=== PATIENT | male | born 1980 | race Hispanic/Latino ===

== ENCOUNTER 2018-07-16 07:30 | Emergency (ER) | payer BC, OTHER ==
[~2018-07-16] VITALS: Ht 165.1 cm; Wt 80.7 kg
[2018-07-16] MEDS ORDERED: KETOROLAC TROMETHAMINE 30 MG/ML VIAL IV STA (08:02)
--- NOTE | 2018-07-16 08:20 | Diagnostic Imaging Report ---
PROCEDURE:CXR 2 VIEW - HOPD COMPARISON:None. INDICATIONS:lt wall chest pain today FINDINGS:The lungs are well-inflated. No focal airspace consolidation, pleural effusion, or pneumothorax. Cardio mediastinal contour and pulmonary vasculature are within normal limits when accounting for portable, AP technique. No acute osseous abnormality. CONCLUSION: No acute cardiopulmonary abnormality. Dictated by: Inder Cardona M.D. on 07/16/2018 at 8:28 Electronically approved by: Inder Cardona M.D. on 07/16/2018 at 8:28
[2018-07-16] MEDS ORDERED: MORPHINE SULFATE 2 MG/ML SYR IV STA (08:34)
[2018-07-16] MEDS ORDERED: SODIUM CHLORIDE 0.9% 1000ML 1,000 ML IV SCH (08:45)
[2018-07-16] MEDS ORDERED: PROMETHAZINE 25MG/ NS 50ML (IV) IV ONE (08:45)
[2018-07-16 09:12] VITALS: BP 144/72
== END 2018-07-16 09:19 | disposition home or self-care (01) ==
LOC: FSED 07:30
DX: R07.89 Other chest pain (principal); M94.0 Chondrocostal junction syndrome [Tietze]
CPT/HCPCS: 71046; 80053; 82553; 84484; 85025; 85379; 93005; 99284; J1885; J2270; J2550

== ENCOUNTER 2020-03-14 18:59 | Emergency (ER) | payer BC, OTHER ==
[~2020-03-14] VITALS: Ht 165.1 cm; Wt 78.9 kg
--- OUTSIDE RECORDS SUMMARY | 2020-03-14 19:01 | XMS REPORT | Continuity of Care Document ---
Author Author [facility] Organization [facility] Address [address] Mai [address] [place] [id number] Phone Unavailable Care Team Providers Care Trash Truck Driver Name Role Phone SOFIA NEVES MD PCP Erma WINTERS Unavailable Payers Payer Name Policy Type Policy Number Effective Date Expiration Date Dev lisa [employer] [id number] 2017 00:00:00 [facility] Problems This patient has no known problems. Allergies, Adverse Reactions, Alerts This patient has no known allergies or adverse reactions. Medications This patient has no known medications. Procedures This patient has no known procedures. Encounters Start Date/Time End Date/Time Encounter Type Admission Type [facility] Care Department Encounter ID Source 2018-07-16 07:30:00 2018-07-16 09:19:00 Departed Emergency Room 1 KVE WINTERS [facility] [id number] [facility] Results Test Description Test Time Test Comments Results Result Comments Source CXR 2 VIEW - HOPD 2018-07-16 08:28:00 [facility] [address] [place] [address] Patient Name: DONNA CHAUDHRY MR #: [id number] : 1980 Age/Sex: 37/M Req #: [id number] Adm Physician: Ordered by: KEV WINTERS MD Report #: [id number] Location: [facility] Room/Bed: Procedure: [id number] HOPD/CXR 2 VIEW - HOPD Exam Date: 07/16/18 Exam Time: 815 REPORT STATUS: Signed PROCEDURE: CXR 2 VIEW - HOPD COMPARISON: None. INDICATIONS: lt wall chest pain today FINDINGS: The lungs are well- inflated. No focal airspace consolidation, pleural effusion, or pneumothorax. Cardio mediastinal contour and pulmonary vasculature are within normal limits when accounting for portable, AP technique. No acute osseous abnormality. CONCLUSION: No acute cardiopulmonary abnormality. Dictated by: Timoteo Navarro M.D. on 07/16/2018 at 8:28 Electronically approved by: Timoteo Navarro M.D. on 07/16/2018 at 8:28 Dictated By: TIMOTEO NAVARRO MD 7 Transcribed By: ESEQUIEL on 07/16/18827 COPY TO: KEV WINTERS MD
[2020-03-14] MEDS ORDERED: KETOROLAC TROMETHAMINE 60 MG/2 ML VIAL IM ONE (19:15)
[2020-03-14] MEDS ORDERED: METFORMIN HCL500 MG PO (19:17)
--- NOTE | 2020-03-14 19:18 | NUR ---
Report to BARBARA Pizarro
--- NOTE | 2020-03-14 19:49 | Diagnostic Imaging Report ---
Right wrist 3 - views HISTORY: Pain and swelling. COMPARISON: None FINDINGS: No displaced fracture. Osseous alignment is within normal limits. The joint spaces are well-maintained. The soft tissues appear unremarkable. IMPRESSION: No acute osseous abnormality. Signed by: Dr. Claritza Vyas M.D. on 03/14/2020 7:45 PM
--- NOTE | 2020-03-14 19:56 | Emergency Department Note ---
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 was doing well prior to this. Historian: Patient Arrival Mode: Car History limited by: condition of the patient (normal) Onset (how long ago): day(s) (3) Location: rgt wrist Quality: sharp Radiation: non-radiation Severity: moderate Onset quality: gradual Duration (how long): day(s) (3) Progression: worsening Chronicity: new Context: recent illness, recent surgery, recent immobilization, recent travel; trauma/injury; new medications, hx of DVT/PE, non-compliance w/ medications Relieving factors: rest Exacerbating factors: movement Associated symptoms: denies other symptoms Treatments prior to arrival: none Past Medical/Family History Physician Review I have reviewed the patient's past medical and family history. Any updates have been documented here. Past Medical History Recent Fever: No Clinical Suspicion of Infectio: No New/Unexplained Change in Ment: No Past Medical History: Hypertension, Diabetes Past Surgical History: Appendectomy Social History Smoking Cessation: Never Smoker Counseling Performed: No Alcohol Use: Occasional Any Illegal Drug Use: No TB Exposure/Symptoms: No Physically hurt or threatened: No Family History Family history of heart diseas: Yes Other Last Tetanus: UNK Any Pre-Existing Lines (PICC,: No Is patient up to date on immun: Yes Last Flu: none Last Pneumovax: none Review of Systems Review of Systems Constitutional: no symptoms EENTM: no symptoms Cardiovascular: no symptoms Respiratory: no symptoms Gastrointestinal: no symptoms Genitourinary: no symptoms Musculoskeletal: as per HPI, joint pain, joint swelling Neurological: no symptoms Psychological: no symptoms Endocrine: no symptoms Hematological/Lymphatic: no symptoms Review of other systems All other systems reviewed and negative. Physical Exam Related Data Allergies: Coded Allergies: No Known Allergies (Unverified , 07/16/18) Triage Vital Signs Vital Signs Date Time Temp Pulse Resp B/P (MAP) Pulse Ox O2 Delivery O2 Flow Rate FiO2 03/14/20 19:02 98.3 66 16 138/80 98 Vital signs reviewed: Yes Physical Exam CONSTITUTIONAL Constitutional: well-developed, well-nourished HENT HENT: normocephalic, atraumatic, oropharynx clear/moist, nose normal HENT L/R: left ext ear normal, right ext ear normal EYES Eyes: PERRL, conjunctivae normal NECK Neck: ROM normal PULMONARY Pulmonary: effort normal, breath sounds normal CARDIOVASCULAR Cardiovascular: regular rhythm, heart sounds normal, capillary refill normal, normal rate GASTROINTESTINAL Abdominal: soft, nontender, bowel sounds normal GENITOURINARY Genitourinary: exam deferred SKIN Skin: warm, dry MUSCULOSKELETAL Musculoskeletal: tenderness (rgt wrist), swelling, other (decrease farom) NEUROLOGICAL Neurological: alert, oriented x 3, no gross motor or sensory deficits PSYCHOLOGICAL Psychological: mood/affect normal, judgement normal Results Imaging Imaging results reviewed: Yes (rgt wrist xray = neg) Critical Care Time Subsequent provider I assumed direction of critical care for this patient from another provider of m y specialty. Assessment & Plan Assessment & Plan Final Impression: (1) UNSPECIFIED SPRAIN OF RIGHT WRIST, INITIAL ENCOUNTER Assessment & Plan prednisone prn pain, wear robert bandage, f/u ortho Depart Disposition: HOME, SELF-CARE Last Vital Signs Date Time Temp Pulse Resp B/P (MAP) Pulse Ox O2 Delivery O2 Flow Rate FiO2 03/14/20 19:02 98.3 66 16 138/80 98 Home Meds Reported Medications Metformin Hcl (METFORMIN HCL) 500 Mg Tablet, 500 MG PO BID, #60 TAB 03/14/20 Medications in the ED Ketorolac Tromethamine 60 mg ONCE ONCE IM ; Start 03/14/20 at 19:15; Stop 03/14/20 at 19:16; Status LIV BARNES Mar 14, 2020 19:56
[2020-03-14] MEDS ORDERED: PREDNISONE20 MG PO (20:12)
== END 2020-03-14 20:13 | disposition home or self-care (01) ==
LOC: FSED 18:59
DX: M25.531 Pain in right wrist (principal); M25.431 Effusion, right wrist; S63.501A Unspecified sprain of right wrist, initial encounter; I10 Essential (primary) hypertension; E11.9 Type 2 diabetes mellitus without complications
CPT/HCPCS: 73110; 99283; J1885

== ENCOUNTER 2020-03-29 18:05 | Emergency (ER) | payer OTHER ==
[~2020-03-29] VITALS: Ht 165.1 cm; Wt 78.9 kg
[~2020-03-29 18:05] MED LIST: METFORMIN HCL500 MG PO; PREDNISONE20 MG PO
--- NOTE | 2020-03-29 18:20 | NUR ---
SOAP BOILER CALLED FOR TRANSPORT TO LAB
[2020-03-29] MEDS ORDERED: LORATADINE10 MG PO (18:26)
--- NOTE | 2020-03-29 18:26 | Emergency Department Note ---
History of Present Illnes History of Present Illness History of Present Illness This is a 39 year old male DM2 c/o URI symptoms for 2 days, scratchy throat, nasal congestion, sneezing, watery eyes, some cough, no f/c, no chest pain . 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 Any updates have been documented here. Past Medical History Recent Fever: No Clinical Suspicion of Infectio: No New/Unexplained Change in Ment: No Past Medical History: Hypertension, Diabetes Past Surgical History: Appendectomy Social History Smoking Cessation: Never Smoker Alcohol Use: Social Family History Family history of heart diseas: No Other Last Tetanus: UNK Any Pre-Existing Lines (PICC,: No Review of Systems Review of Systems Constitutional: Reports no symptoms EENTM: Reports tearing, Reports nose congestion, Reports throat pain Cardiovascular: Reports no symptoms Respiratory: Reports as per HPI, Reports chest congestion Gastrointestinal: Reports no symptoms Genitourinary: Reports no symptoms Musculoskeletal: Reports no symptoms Integumentary: Reports no symptoms Neurological: Reports no symptoms Psychological: Reports no symptoms Endocrine: Reports no symptoms Hematological/Lymphatic: Reports no symptoms Physical Exam Related Data Allergies: Coded Allergies: No Known Allergies (Unverified , 07/16/18) Physical Exam CONSTITUTIONAL Constitutional: Present well-developed, Present well-nourished HENT HENT: Present normocephalic, Present atraumatic, Present oropharynx clear/moist, Present nose normal HENT L/R: Present left ext ear normal, Present right ext ear normal EYES Eyes: Reports PERRL, Reports conjunctivae normal NECK Neck: Present ROM normal PULMONARY Pulmonary: Present effort normal, Present breath sounds normal CARDIOVASCULAR Cardiovascular: Present regular rhythm, Present heart sounds normal, Present capillary refill normal, Present normal rate GASTROINTESTINAL Abdominal: Present soft, Present nontender, Present bowel sounds normal GENITOURINARY Genitourinary: Present exam deferred SKIN Skin: Present warm, Present dry MUSCULOSKELETAL Musculoskeletal: Present ROM normal NEUROLOGICAL Neurological: Present alert, Present oriented x 3, Present no gross motor or sensory deficits PSYCHOLOGICAL Psychological: Present mood/affect normal, Present judgement normal Results Laboratory Laboratory strep negative, COVID pending Assessment & Plan Medical Decision Making MDM likely allergic Rhinitis Assessment & Plan Final Impression: (1) Allergic rhinitis due to allergen Depart Disposition: HOME, SELF-alf Meds Active Scripts Loratadine (LORATADINE) 10 Mg Tablet, 10 MG PO DAILY, #30 TAB Prov:DIANE MOJICA MD 03/29/20 Prednisone (PREDNISONE) 20 Mg Tab, 60 MG PO DAILY PRN for MODERATE PAIN (4-6) for 5 Days, #15 TAB take all 3 pills at once Prov:LIV CAREY 03/14/20 Reported Medications Metformin Hcl (METFORMIN HCL) 500 Mg Tablet, 500 MG PO BID, #60 TAB 03/14/20 DIANE MOJICA MD Mar 29, 2020 18:26
== END 2020-03-29 18:57 | disposition home or self-care (01) ==
LOC: FSED 18:05
DX: R05 Cough (principal); U07.1 COVID-19; J30.89 Other allergic rhinitis
CPT/HCPCS: 83518; 87635; 99283

== ENCOUNTER 2020-06-16 17:53 | Emergency (ER) | payer OTHER ==
[~2020-06-16] VITALS: Ht 165.1 cm; Wt 79.4 kg
[~2020-06-16 17:53] MED LIST changes: +LORATADINE10 MG PO
[2020-06-16] MEDS ORDERED: KETOROLAC TROMETHAMINE 60 MG/2 ML VIAL IM ONE (18:30)
[2020-06-16] MEDS ORDERED: CLINDAMYCIN PHOS 600 MG/ 4 ML VIAL IM ONE (18:30)
[2020-06-16] MEDS ORDERED: TETANUS/DIPHTHERIA TOX ADULT 0.5 ML SYR IM ONE (18:30)
[2020-06-16] MEDS ORDERED: TRIMETHOPRIM/SULFAMETHOXAZOLE 160-800 MG TAB PO ONE (18:30)
[2020-06-16] MEDS ORDERED: TETANUS/DIPHTHERIA TOX ADULT 0.5 ML SYR ONE (18:35)
--- OUTSIDE RECORDS SUMMARY | 2020-06-16 18:35 | XMS REPORT | Continuity of Care Document ---
Author Author [facility] t Organization [facility] Address [address] [place] [address] Phone Unavailable Care Team Providers Care Filter Filler Name Role Phone MD Kranthi HUBBARD PCP Vidhya CAREY Attphydev Unavailable Erma WINTERS Attperi Unavailable Payers Payer Name Policy Type Policy Number Effective Date Expiration Date Dev [employer] [id number] 2019 00:00:00 00:00:00 [facility] [employer] Exchange [id number] 2017 00:00:00 [facility] Problems Condition Name Condition Details Condition Category Status Onset Date Resolution Date Last Treatment Date Treating Clinician Comments Source Allergic rhinitis Problem Active [facility] Allergies, Adverse Reactions, Alerts This patient has no known allergies or adverse reactions. Social History Social Habit Start Date Stop Date Quantity Comments Source Sex Assigned At 1980 00:00:00 1980 00:00:00 Male [facility] Medications Ordered Medication Name Filled Medication Name Start Date Stop Da te Current Medication? Ordering Clinician Indication Dosage Frequency Signature (SIG) Comments Components Source Loratadine Loratadine 2020-03-29 18:26:00 Yes 10 Goldie ly [facility] Prednisone Prednisone 2020-03-14 20:12:00 Yes 60 Daily as needed for Moderate Pain (4-6) [facility] Metformin Hcl Metformin Hcl Yes 500 Twice A Day [facility] Vital Signs Vital Name Observation Time Observation Value Comments Source Weight 2020-03-29 18:18:00 174 [lb_av] [facility] BMI (Body Mass Index) 2020-03-29 18:18:00 29.0 kg/m2 [facility] Weight 2020-03-14 19:02:00 174 [lb_av] [facility] BMI (Body Mass Index) 2020-03-14 19:02:00 29.0 kg/m2 [facility] Procedures This patient has no known procedures. Plan of Care Planned Activity Planned Date Details Comments Source Instructions Sore Throat-Adult [facility] Encounters Start Date/Time End Date/Time Encounter Type Admission Type [facility] Care Department Encounter ID Source 2020-03-29 18:05:00 2020-03-29 18:57:00 Departed Emergency Room [facility] [id number] [facility] [place] 2020-03-14 18:59:00 2020-03-14 20:13:00 Departed Emergency Room 1 LIV CAREY [facility] [id number] [facility] 2018-07-16 07:30:00 2018-07-16 09:19:00 Departed Emergency Room 1 KEV WINTERS [facility] [id number] [facility] Results Test Description Test Time Test Comments Results Result Comments Source WRIST 3VW RT - HOPD 2020-03-14 19:31:00 [place] [address] Patient Name: DONNA CHAUDHRY MR #: [id number] : 1980 Age/Sex: 39/M Req #: [id number] Adm Physician: Ordered by: LIV CAREY Report #: [id number] Location: [facility] Room/Bed: Procedure: [id number] HOPD/WRIST 3VW RT - HOPD Exam Date: 03/14/20 Exam Time: 1924 REPORT STATUS: Signed Right wrist 3 - views HISTORY: Pain and swelling. COMPARISON: None FINDINGS: No displaced fracture. Osseous alignment is within normal limits. The joint spaces are well-maintained. The soft tissues appear unremarkable. IMPRESSION: No acute osseous abnormality. Signed by: Dr. Claritza Stevens M.D. on 03/14/2020 7:45 PM Dictated By: ABDULLAHI STEVENS MD, MD 44 Transcribed By: JERAMY on 03/14/201944 COPY TO: LIV CAREY CXR 2 VIEW - HOPD 2018-07-16 08:28:00 [place] [address] Patient Name: DONNA CHAUDHRY MR #: [id number] : 1980 Age/Sex: 37/M Req #: [id number] [facility] Physician: Ordered by: KEV WINTERS MD Report #: [id number] Location: [facility] Room/Bed: Procedure: [id number] HOPD/CXR 2 VIEW - HOPD Exam Date: [...]
[2020-06-16] MEDS ORDERED: BACTRIM DS TAB1 EACH PO (19:07)
[2020-06-16] MEDS ORDERED: MOTRIN800 MG PO (19:07)
[2020-06-16] MEDS ORDERED: CLINDAMYCIN HC300 MG PO (19:07)
--- NOTE | 2020-06-16 19:08 | Emergency Department Note ---
History of Present Illnes History of Present Illness Chief Complaint: puncture wound/+pus proximal left palm s/p wound splinter stuck in pt History of Present Illness This is a 39 year old male. was doing well prior to this. pt said he removed the entire splinter Historian: Patient Arrival Mode: Car History limited by: condition of the patient (normal) Onset (how long ago): day(s) (2) Location: see above Radiation: Reports non-radiation Severity: moderate Onset quality: gradual Duration (how long): day(s) (2) Timing of current episode: constant Progression: worsening Chronicity: new Context: Reports trauma/injury; Denies recent illness, Denies recent surgery, Denies recent immobilization, Denies recent travel, Denies new medications, Denies hx of DVT/PE, Denies non- compliance w/ medications Relieving factors: none Exacerbating factors: movement Associated symptoms: Reports denies other symptoms Treatments prior to arrival: none Past Medical/Family History Physician Review I have reviewed the patient's past medical and family history. Any updates have been documented here. Past Medical History Recent Fever: No Clinical Suspicion of Infectio: No New/Unexplained Change in Ment: No Past Medical History: Diabetes Past Surgical History: Appendectomy Social History Smoking Cessation: Never Smoker Counseling Performed: No Alcohol Use: Occasional Any Illegal Drug Use: No Physically hurt or threatened: No Other Last Tetanus: UNK Any Pre-Existing Lines (PICC,: No Review of Systems Review of Systems Constitutional: Reports no symptoms EENTM: Reports no symptoms Cardiovascular: Reports no symptoms Respiratory: Reports no symptoms Gastrointestinal: Reports no symptoms Genitourinary: Reports no symptoms Musculoskeletal: Reports no symptoms Integumentary: Reports as per HPI, Reports rash Neurological: Reports no symptoms Psychological: Reports no symptoms Endocrine: Reports no symptoms Hematological/Lymphatic: Reports no symptoms Review of other systems: All other systems negative Physical Exam Related Data Allergies: Coded Allergies: No Known Allergies (Unverified , 07/16/18) Triage Vital Signs Vital Signs Date Time Temp Pulse Resp B/P (MAP) Pulse Ox O2 Delivery O2 Flow Rate FiO2 06/16/20 18:00 98.4 70 15 118/72 99 Room Air Vital signs reviewed: Yes Physical Exam CONSTITUTIONAL Constitutional: Present well-developed, Present well-nourished HENT HENT: Present normocephalic, Present atraumatic, Present oropharynx clear/moist, Present nose normal HENT L/R: Present left ext ear normal, Present right ext ear normal EYES Eyes: Reports PERRL, Reports conjunctivae normal NECK Neck: Present ROM normal, Present supple PULMONARY Pulmonary: Present effort normal, Present breath sounds normal CARDIOVASCULAR Cardiovascular: Present regular rhythm, Present heart sounds normal, Present capillary refill normal, Present normal rate GASTROINTESTINAL Abdominal: Present soft, Present nontender, Present bowel sounds normal GENITOURINARY Genitourinary: Present exam deferred SKIN Skin: Present warm, Present dry, Present other (erythematous based tender blanching rash 3cm diameter left palm) MUSCULOSKELETAL Musculoskeletal: Present ROM normal NEUROLOGICAL Neurological: Present alert, Present oriented x 3, Present no gross motor or sensory deficits PSYCHOLOGICAL Psychological: Present mood/affect normal, Present judgement normal Assessment & Plan Medical Decision Making MDM see below Assessment & Plan Final Impression: (1) Cellulitis (2) Puncture wound Depart Disposition: HOME, SELF-CARE Last Vital Signs Date Time Temp Pulse Resp B/P (MAP) Pulse Ox O2 Delivery O2 Flow Rate FiO2 06/16/20 18:00 98.4 70 15 118/72 99 Room Air Home Meds Active Scripts Ibuprofen (MOTRIN) 800 Mg Tab, 800 MG PO Q6H PRN for MODERATE PAIN (4-6), #30 TAB Prov:LIV CAREY 06/16/20 Sulfamethoxazole/Trimethoprim (BACTRIM DS TABLET) 1 Each Tablet, 1 TAB PO Q12H, #20 TAB Prov:LIV CAREY 06/16/20 Clindamycin Hcl (CLINDAMYCIN HCL) 300 Mg Capsule, 300 MG PO Q6H, #40 TAB Prov:LIV CAREY 06/16/20 Loratadine (LORATADINE) 10 Mg Tablet, 10 MG PO DAILY, #30 TAB Prov:DIANE MOJICA MD 03/29/20 Prednisone (PREDNISONE) 20 Mg Tab, 60 MG PO DAILY PRN for MODERATE PAIN (4-6) for 5 Days, #15 TAB take all 3 pills at once Prov:LIV CAREY 03/14/20 Reported Medications Metformin Hcl (METFORMIN HCL) 500 Mg Tablet, 500 MG PO BID, #60 TAB 03/14/20 Medications in the ED Clindamycin Phosphate 600 mg ONCE ONCE IM Last administered on 06/16/20at 18:40; Admin Dose 600 MG; Start 06/16/20 at 18:30; Stop 06/16/20 at 18:35; Status DC Trimethoprim/ Sulfamethoxazole 2 ea ONCE ONCE PO Last administered on 06/16/20 18:40; Admin Dose 2 EA; Start 06/16/20 at 18:30; Stop 06/16/20 at 18:37; Status DC Ketorolac Tromethamine 60 mg ONCE ONCE IM Last administered on 06/16/20 18:40; Admin Dose 60 MG; Start 06/16/20 at 18:30; Stop 06/16/20 at 18:35; Status DC Tetanus/ Diphtheria Toxoids 0.5 ml STK-MED ONCE .ROUTE ; Start 06/16/20 at 18:35; Stop 06/16/20 at 18:29; Status DC Tetanus/ Diphtheria Toxoids 0.5 ml ONCE ONCE IM Last administered on 06/16/20at 18:40; Admin Dose 0.5 ML; Start 06/16/20 at 18:30; Stop 06/16/20 at 18:36; Status DC LIV CAREY Jun 16, 2020 19:07
[2020-06-16 19:27] VITALS: BP 114/69
== END 2020-06-16 19:26 | disposition home or self-care (01) ==
LOC: FSED 18:15
DX: L03.114 Cellulitis of left upper limb (principal); S61.432A Puncture wound without foreign body of left hand, initial encounter; W45.8XXA Other foreign body or object entering through skin, initial encounter; E11.9 Type 2 diabetes mellitus without complications
CPT/HCPCS: 90471; 90714; 96372; 99283; J1885

== ENCOUNTER 2020-12-25 06:55 | Emergency (ER) | payer SELFPAY ==
[~2020-12-25] VITALS: Ht 165.1 cm; Wt 73.9 kg
[~2020-12-25 06:55] MED LIST changes: +BACTRIM DS TAB1 EACH PO; +CLINDAMYCIN HC300 MG PO; +MOTRIN800 MG PO
[2020-12-25] MEDS ORDERED: SODIUM CHLORIDE 0.9% 1000ML 1,000 ML IV STA (07:26)
[2020-12-25] MEDS ORDERED: FAMOTIDINE 20 MG/2 ML VIAL IV STA (07:26)
[2020-12-25] MEDS ORDERED: ONDANSETRON HCL INJ 2MG/ML 2ML 2 MG/ML VIAL IV STA (07:26)
[2020-12-25] MEDS ORDERED: SODIUM CHLORIDE 0.9% 1000ML 1,000 ML ONE (07:46)
[2020-12-25] MEDS ORDERED: SODIUM CHLORIDE 0.9% 50ML 50 ML ONE (08:18)
[2020-12-25] MEDS ORDERED: DIATRIZOATE MEGL/DIATRIZOA SOD 30 ML BTL PO ONE (08:19)
[2020-12-25] MEDS ORDERED: IOPAMIDOL 370 MG/ML 200 ML INFUS..BTL INJ ONE (08:19)
[2020-12-25] MEDS ORDERED: TYLENOL # 31 EA PO (10:04)
[2020-12-25] MEDS ORDERED: PREDNISONE20 MG PO (10:04)
[2020-12-25] MEDS ORDERED: FLAGYL500 MG PO (10:04)
[2020-12-25] MEDS ORDERED: CIPRO500 MG PO (10:04)
[2020-12-25 10:05] VITALS: BP 114/62
== END 2020-12-25 10:10 | disposition home or self-care (01) ==
LOC: FSED 07:10
DX: R10.12 Left upper quadrant pain (principal); R11.2 Nausea with vomiting, unspecified; K52.9 Noninfective gastroenteritis and colitis, unspecified; E11.65 Type 2 diabetes mellitus with hyperglycemia
CPT/HCPCS: 74177; 80048; 80076; 81003; 85025; 96374; 96376; 99284; J2405; J7030; Q9967

== ENCOUNTER 2022-06-15 01:22 | Emergency (ER) | payer OTHER ==
[~2022-06-15] VITALS: Ht 165.1 cm; Wt 73.9 kg
[~2022-06-15 01:22] MED LIST changes: +CIPRO500 MG PO; +FLAGYL500 MG PO; +TYLENOL # 31 EA PO
[2022-06-15] MEDS ORDERED: KETOROLAC TROMETHAMINE 60 MG/2 ML VIAL ONE (02:14)
[2022-06-15] MEDS ORDERED: KETOROLAC TROMETHAMINE 60 MG/2 ML VIAL IM ONE (02:15)
[2022-06-15] MEDS ORDERED: IBUPROFEN600 MG PO (02:43)
== END 2022-06-15 02:58 | disposition home or self-care (01) ==
LOC: FSED 01:47
DX: M25.562 Pain in left knee (principal); E11.9 Type 2 diabetes mellitus without complications; E78.5 Hyperlipidemia, unspecified; X50.1XXA Overexertion from prolonged static or awkward postures, initial encounter
CPT/HCPCS: 73560; 99283; J1885

== ENCOUNTER 2023-02-05 11:45 | Emergency (ER) | payer OTHER ==
[~2023-02-05] VITALS: Ht 165.1 cm; Wt 66.9 kg
[~2023-02-05 11:45] MED LIST changes: +IBUPROFEN600 MG PO
[2023-02-05] MEDS ORDERED: METOCLOPRAMIDE HCL 10 MG/2ML VIAL IV STA (12:18)
[2023-02-05] MEDS ORDERED: SODIUM CHLORIDE 0.9% 1000ML 1,000 ML IV STA (12:18)
[2023-02-05] MEDS ORDERED: METHYLPREDNISOLONE SOD SUCC 125 MG/2ML VIAL IV STA (12:18)
[2023-02-05] MEDS ORDERED: KETOROLAC TROMETHAMINE 30 MG/ML VIAL IV STA (12:18)
[2023-02-05] MEDS ORDERED: DIPHENHYDRAMINE HCL INJ 50 MG/ML VIAL IV STA (12:18)
[2023-02-05] MEDS ORDERED: OMEPRAZOLE40 MG PO (12:22)
[2023-02-05] MEDS ORDERED: METOCLOPRAMIDE HCL 10 MG/2ML VIAL ONE (12:32)
[2023-02-05] MEDS ORDERED: METHYLPREDNISOLONE SOD SUCC 125 MG/2ML VIAL ONE (12:33)
[2023-02-05] MEDS ORDERED: KETOROLAC TROMETHAMINE 30 MG/ML VIAL ONE (12:33)
[2023-02-05] MEDS ORDERED: SODIUM CHLORIDE 0.9% 1000ML 1,000 ML ONE (12:33)
[2023-02-05] MEDS ORDERED: DIPHENHYDRAMINE HCL INJ 50 MG/ML VIAL ONE (12:33)
[2023-02-05] MEDS ORDERED: ONDANSETRON ODT4 MG PO (13:32)
[2023-02-05] MEDS ORDERED: FIORICET 50-301 EACH PO (13:32)
[2023-02-05] MEDS ORDERED: ONDANSETRON HCL INJ 2MG/ML 2ML 2 MG/ML VIAL IV STA (13:33)
[2023-02-05] MEDS ORDERED: Morphine 4mg INJECTION 4 MG/ML INJ IV STA (13:33)
== END 2023-02-05 13:44 | disposition home or self-care (01) ==
LOC: FSED 11:54
DX: R50.9 Fever, unspecified (principal); R51.9 Headache, unspecified; R11.2 Nausea with vomiting, unspecified; E11.65 Type 2 diabetes mellitus with hyperglycemia; E78.5 Hyperlipidemia, unspecified
CPT/HCPCS: 70450; 80048; 80076; 81003; 85025; 87400; 96374; 96375; 99284; J1200; J1885; J2765; J2930; J7030

== ENCOUNTER 2025-01-30 22:39 | Emergency (ER) | payer OTHER ==
[~2025-01-30] VITALS: Ht 165.1 cm; Wt 71.7 kg
[~2025-01-30 22:39] MED LIST changes: +FIORICET 50-301 EACH PO; +IBUPROFEN200 MG PO; +MORGIDOX50 MG PO; +OMEPRAZOLE40 MG PO; +ONDANSETRON ODT4 MG PO
[2025-01-30 23:25] VITALS: PULSE 90; RESP 18; TEMP 97.7
[2025-01-31] MEDS: TRAMADOL HCL 50 MG TAB PO ONE (00:15)
[2025-01-31] MEDS ORDERED: NAPROXEN250 MG PO (00:49)
[2025-01-31] MEDS ORDERED: ULTRAM 50MG50 MG PO (00:50)
[2025-01-31 04:36] VITALS: BP 121/74; PULSE 86; RESP 18; TEMP 97.7; O2SAT 96
== END 2025-01-31 01:12 | disposition home or self-care (01) ==
LOC: FSED 23:30
DX: S93.491A Sprain of other ligament of right ankle, initial encounter (principal); S93.691A Other sprain of right foot, initial encounter; M25.471 Effusion, right ankle; X50.1XXA Overexertion from prolonged static or awkward postures, initial encounter; Y93.01 Activity, walking, marching and hiking; Y92.89 Other specified places as the place of occurrence of the external cause; E11.9 Type 2 diabetes mellitus without complications; E78.5 Hyperlipidemia, unspecified; K21.9 Gastro-esophageal reflux disease without esophagitis
CPT/HCPCS: 99283

== ENCOUNTER 2025-05-04 23:18 | Emergency (ER) | payer OTHER ==
[~2025-05-04] VITALS: Ht 165.1 cm; Wt 67.1 kg
[~2025-05-04 23:18] MED LIST changes: +NAPROXEN250 MG PO; +ULTRAM 50MG50 MG PO
[2025-05-05] MEDS: DIPHENHYDRAMINE HCL INJ 50 MG/ML VIAL IV ONE (00:16)
[2025-05-05] MEDS: SODIUM CHLORIDE 0.9% 1000ML 1,000 ML IV SCH (00:16)
[2025-05-05] MEDS: METOCLOPRAMIDE HCL 10 MG/2ML VIAL IV ONE (00:16)
[2025-05-05] MEDS ORDERED: INSULIN REGULAR, HUMAN 100 UNIT/1 ML IV ONE (01:00)
[2025-05-05] MEDS: KETOROLAC TROMETHAMINE 30 MG/ML VIAL IV STA (02:48)
[2025-05-05 03:05] VITALS: PULSE 74; RESP 15; TEMP 98.8
[2025-05-05] MEDS ORDERED: KETOROLAC TROME10 MG PO (03:10)
[2025-05-05] MEDS ORDERED: ONDANSETRON ODT4 MG PO (03:10)
[2025-05-05 03:14] VITALS: BP 99/57; PULSE 74; RESP 15; TEMP 98.8; O2SAT 97
== END 2025-05-05 05:00 | disposition home or self-care (01) ==
LOC: FSED 23:53
DX: G43.909 Migraine, unspecified, not intractable, without status migrainosus (principal); R11.2 Nausea with vomiting, unspecified; E11.65 Type 2 diabetes mellitus with hyperglycemia; E78.5 Hyperlipidemia, unspecified; K21.9 Gastro-esophageal reflux disease without esophagitis; Z91.148 Patient's other noncompliance with medication regimen for other reason
CPT/HCPCS: 36415; 70450; 80053; 81003; 82948; 85025; 96374; 96375; 99284; J1200; J1885; J2765; J7030